=== PATIENT | female | born 1985 | race Caucasian/White ===

== ENCOUNTER 2021-04-21 19:45 | Inpatient (IN) | payer SELFPAY ==
[2021-04-21 19:45] VITALS: BP 111/72; PULSE 94; RESP 18; TEMP 36.6; O2SAT 97
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
[2021-04-21 22:00] VITALS: BP 111/72; PULSE 94; RESP 18; TEMP 36.6
[2021-04-22] MEDS: trazodone 50 mg Tablet PO ×2 (02:08→20:09)
--- NOTE | 2021-04-22 02:09 | PC.NURSE ---
Patient requested medication to help her sleep. She stated she does not like to take medication but thinks it is time that she gets some sleep. Trazadone was given.
[2021-04-22 06:00] VITALS: BP 103/71; PULSE 86; RESP 16; TEMP 36.3; O2SAT 97
[2021-04-22] MEDS: hyDROXYzine 25 mg Capsule 50 MG PO ×2 (12:13→18:54)
[2021-04-22 13:45] VITALS: BP 111/77; PULSE 85; RESP 16; TEMP 36.6; O2SAT 99
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
[2021-04-22 19:27] VITALS: BP 113/73; PULSE 70; RESP 16; O2SAT 97
[2021-04-22 22:00] VITALS: BP 113/73; PULSE 70; RESP 16; TEMP 36.6; O2SAT 97
[2021-04-23 06:00] VITALS: BP 104/74; PULSE 73; RESP 17; TEMP 36.9; O2SAT 98
[2021-04-23] MEDS: acetaminophen 325 mg Tablet 650 MG PO (06:04)
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
[2021-04-23 08:07] VITALS: BP 104/74; PULSE 73; RESP 17; TEMP 36.9; O2SAT 98
[2021-04-23] MEDS: fluoxetine 20 mg Capsule PO (08:18)
--- NOTE | 2021-04-23 09:45 | PC.NURSE ---
Am assessment Patient is up with am assessment. She is alert and oriented in all aspects. She denies Si, Hi or hallucinations. Her affect is wnl. She denies pain at this time. Discharge instructions were given per physician orders. She voice understanding. All needs were met.
[2021-04-23 10:11] VITALS: BP 104/74; PULSE 73; RESP 17; TEMP 36.9; O2SAT 98
== END 2021-04-23 10:12 | disposition home or self-care (01) | DRG 885 ==
PROVIDERS: Admitting Provider Psychiatry & Neurology Psychiatry; Visit Provider Psychiatry & Neurology Psychiatry
DX: F29 Unspecified psychosis not due to a substance or known physiological condition (principal); F41.9 Anxiety disorder, unspecified; F60.3 Borderline personality disorder; F12.20 Cannabis dependence, uncomplicated
CPT/HCPCS: 97150; 97165